=== PATIENT | male | born 1965 | race Hispanic/Latino ===

== ENCOUNTER → 2020-04-02 | Outpatient (CLI) | payer BC | END | disposition home or self-care (01) | LOC: RAH 07:53 | PROVIDERS: ATTEND Family Medicine | DX: G31.9 Degenerative disease of nervous system, unspecified (principal); I25.89 Other forms of chronic ischemic heart disease | CPT/HCPCS: 70551 ==

== ENCOUNTER 2021-05-06 16:09 | Emergency (ER) | payer BC ==
[~2021-05-06] VITALS: Ht 180.3 cm; Wt 100.7 kg
[2021-05-06] MEDS ORDERED: KETOROLAC 30MG VIAL (30MG/ML) IV STA (16:43)
[2021-05-06 16:54] LABS: BASOPHILS % (AUTO) 0.4 % (0.0-5.0); HEMATOCRIT 38.2 % (42-54); LYMPHOCYTES % (AUTO) 26.4 % (21.0-51.0); MEAN CORPUSCULAR HEMOGLOBIN 31.3 pg (27.0-33.0); MEAN CORPUSCULAR HGB CONC 33.2 g/dL (32.0-36.0); MEAN CORPUSCULAR VOLUME 94.1 fL (79-99); MONOCYTES % (AUTO) 11.6 % (3.0-13.0); NEUTROPHILS % (AUTO) 60.2 % (40.0-77.0); PLATELET COUNT (AUTO) 202 K/uL (130-400); RED BLOOD CELL COUNT(AUTO) 4.06 MIL/uL (4.50-6.20); RED CELL DISTRIBUTION WIDTH 13.2 % (11.0-15.5); WHITE BLOOD COUNT (AUTO) 6.8 K/uL (4.8-10.8)
[2021-05-06] MEDS ORDERED: ONDANSETRON 4MG INJ IVP ONE (17:00)
[2021-05-06] MEDS ORDERED: FAMOTIDINE 20MG TAB PO ONE (17:00)
[2021-05-06] MEDS ORDERED: LACTATED RINGERS 1000ML 1,000 ML IV ONE (17:00)
[2021-05-06 17:06] LABS: CREATININE 2.5 mg/dL (0.5-1.5); POTASSIUM 3.7 mmol/L (3.5-5.1)
[2021-05-06 17:11] LABS: BILIRUBIN,TOTAL 0.7 mg/dL (0.2-1.0); TOTAL PROTEIN, SERUM 6.8 g/dL (6.0-8.3)
[2021-05-06 17:14] LABS: AMYLASE 52 U/L (25-115)
[2021-05-06 17:15] LABS: LIPASE 131 U/L (114-286)
[2021-05-06] MEDS ORDERED: KETOROLAC 30MG VIAL (30MG/ML) ONE (17:54)
[2021-05-06 18:21] LABS: APPEARANCE,URINE Clear (CLEAR); BILIRUBIN,URINE Negative (NEGATIVE); COLOR,URINE Yellow (YELLOW); GLUCOSE, URINE (UA) Negative (NEGATIVE); KETONES,URINE Trace mg/dL (NEGATIVE); LEUKOCYTE ESTERASE ,URINE Trace (NEGATIVE); NITRATE,URINE Negative (NEGATIVE); OCCULT BLOOD,URINE Negative (NEGATIVE); PH,URINE 5.5 (5.0-8.0); PROTEIN,URINE Trace mg/dL (NEGATIVE)
[2021-05-06] MEDS ORDERED: MORPHINE 2 MG SYG IVP STA (18:23)
[2021-05-06] MEDS ORDERED: LEVOFLOXACIN 500 MG TABLET PO STA (18:23)
[2021-05-06 18:29] LABS: BACTERIA,URINE Few /HPF (None Seen); RBC,URINE 0-1 /HPF (0-1)
[2021-05-06 18:30] LABS: SQUAMOUS EPITHELIAL CELL,UR Few /HPF (0-2); TRANSITIONAL EPI CELLS,URINE Rare /HPF (None Seen)
[2021-05-06] MEDS ORDERED: LEVO750T46 PO (19:50)
[2021-05-06 20:00] VITALS: BP 106/63
== END 2021-05-06 20:04 | disposition home or self-care (01) ==
LOC: EDH 16:09
DX: I95.9 Hypotension, unspecified (principal); R19.7 Diarrhea, unspecified; G89.29 Other chronic pain; I12.9 Hypertensive chronic kidney disease with stage 1 through stage 4 chronic kidney disease, or unspecified chronic kidney disease; N18.9 Chronic kidney disease, unspecified; Z20.822 Contact with and (suspected) exposure to COVID-19; F90.9 Attention-deficit hyperactivity disorder, unspecified type; Z79.1 Long term (current) use of non-steroidal anti-inflammatories (NSAID); Z79.899 Other long term (current) drug therapy; Z86.73 Personal history of transient ischemic attack (TIA), and cerebral infarction without residual deficits; Z88.0 Allergy status to penicillin
CPT/HCPCS: 36415; 80053; 81001; 82150; 82550; 83605; 83690; 83735; 84484; 85025; 87040 ×2; 87088; 87635; 93005 ×2; 96361; 96374; 96375; 99284; C9803; J2405; J7120; J1885

== ENCOUNTER 2021-05-17 17:48 | Inpatient (IN) | payer BC ==
[~2021-05-17] VITALS: Ht 180.3 cm; Wt 100.8 kg
[~2021-05-17 17:48] MED LIST: LEVO750T46 PO
[2021-05-17] MEDS ORDERED: 0.9%NACL 1000ML 1,000 ML IV ONE (18:30)
[2021-05-17 18:56] LABS: BASOPHILS % (AUTO) 0.3 % (0.0-5.0); EOSINOPHILS % (AUTO) 1.1 % (0.0-8.0); HEMATOCRIT 43.4 % (42-54); LYMPHOCYTES % (AUTO) 38.6 % (21.0-51.0); MEAN CORPUSCULAR HEMOGLOBIN 30.9 pg (27.0-33.0); MEAN CORPUSCULAR HGB CONC 33.9 g/dL (32.0-36.0); MEAN CORPUSCULAR VOLUME 91.2 fL (79-99); MONOCYTES % (AUTO) 13.4 % (3.0-13.0); NEUTROPHILS % (AUTO) 46.3 % (40.0-77.0); PLATELET COUNT (AUTO) 197 K/uL (130-400); RED BLOOD CELL COUNT(AUTO) 4.76 MIL/uL (4.50-6.20); RED CELL DISTRIBUTION WIDTH 12.9 % (11.0-15.5); WHITE BLOOD COUNT (AUTO) 6.1 K/uL (4.8-10.8)
[2021-05-17 19:13] LABS: CREATININE 2.6 mg/dL (0.5-1.5); POTASSIUM 3.5 mmol/L (3.5-5.1)
[2021-05-17 19:21] LABS: ALBUMIN 4.5 g/dL (3.5-5.0); BILIRUBIN,TOTAL 0.9 mg/dL (0.2-1.0); MAGNESIUM 1.6 mg/dL (1.80-2.40)
[2021-05-17 19:23] LABS: INR 1.1 (0.85-1.15); PROTHROMBIN TIME 11.9 SEC (9.6-11.6)
[2021-05-17 19:24] LABS: PARTIAL THROMBOPLASTIN TIME 28.7 SEC (26.3-35.5)
[2021-05-17] MEDS ORDERED: MAG/ALUM/SIMETH 30 ML UDCUP PO PRN (20:30)
[2021-05-17] MEDS ORDERED: ACETAMINOPHEN 325 MG TAB PO PRN (20:30)
[2021-05-17] MEDS ORDERED: GUAIFENESIN-DM 200/20 MG 10 ML PO PRN (20:30)
[2021-05-17] MEDS ORDERED: ZOLPIDEM TARTRATE 5 MG TAB PO PRN (20:30)
[2021-05-17] MEDS ORDERED: NITROGLYCERIN 0.4 MG SL TAB SL PRN (20:30)
[2021-05-17] MEDS: 0.9%NACL 1000ML 1,000 ML IV SCH (21:21)
[2021-05-17] MEDS: ACETAMINOPHEN 325 MG TAB PO PRN (23:28)
[2021-05-18] VITALS (11 sets, daily range): BP systolic 90–118; BP diastolic 56–73
[2021-05-18] MEDS: ONDANSETRON 4MG INJ IV PRN (03:06)
[2021-05-18 03:56] LABS: APPEARANCE,URINE Clear (CLEAR); BILIRUBIN,URINE Negative (NEGATIVE); COLOR,URINE Yellow (YELLOW); GLUCOSE, URINE (UA) Negative (NEGATIVE); KETONES,URINE 15 mg/dL (NEGATIVE); LEUKOCYTE ESTERASE ,URINE Negative (NEGATIVE); NITRATE,URINE Negative (NEGATIVE); OCCULT BLOOD,URINE Negative (NEGATIVE); PROTEIN,URINE Negative (NEGATIVE); UROBILINOGEN,URINE 0.2 mg/dL (0.2-1.0)
[2021-05-18 04:03] LABS: AMPHET/METH SCREEN,URINE NEGATIVE (NEGATIVE); BARBITURATE SCREEN, URINE NEGATIVE (NEGATIVE); BENZODIAZEPINES SCREEN,URINE NEGATIVE (NEGATIVE); CANNABINOID SCREEN,URINE NEGATIVE (NEGATIVE); COCAINE SCREEN,URINE NEGATIVE (NEGATIVE); OPIATE SCREEN,URINE NEGATIVE (NEGATIVE); PHENCYCLIDINE SCREEN,URINE NEGATIVE (NEGATIVE)
[2021-05-18] MEDS ORDERED: PROMETHAZINE HCL 25 MG/ML 1ML AMPULE IM PRN (04:30)
[2021-05-18 05:16] LABS: BASOPHILS % (AUTO) 0.3 % (0.0-5.0); EOSINOPHILS % (AUTO) 0.9 % (0.0-8.0); HEMATOCRIT 39.4 % (42-54); LYMPHOCYTES % (AUTO) 39.7 % (21.0-51.0); MEAN CORPUSCULAR HEMOGLOBIN 31.4 pg (27.0-33.0); MEAN CORPUSCULAR HGB CONC 33.5 g/dL (32.0-36.0); MEAN CORPUSCULAR VOLUME 93.6 fL (79-99); MONOCYTES % (AUTO) 14.3 % (3.0-13.0); NEUTROPHILS % (AUTO) 44.6 % (40.0-77.0); PLATELET COUNT (AUTO) 149 K/uL (130-400); RED BLOOD CELL COUNT(AUTO) 4.21 MIL/uL (4.50-6.20); RED CELL DISTRIBUTION WIDTH 13.1 % (11.0-15.5); WHITE BLOOD COUNT (AUTO) 6.5 K/uL (4.8-10.8)
[2021-05-18] MEDS ORDERED: LOPERAMIDE HCL 2 MG CAP PO PRN (05:30)
[2021-05-18 05:34] LABS: ALBUMIN 3.8 g/dL (3.5-5.0); BILIRUBIN,TOTAL 0.7 mg/dL (0.2-1.0); MAGNESIUM 1.5 mg/dL (1.80-2.40); PHOSPHORUS 3.7 mg/dL (2.5-4.9); POTASSIUM 3.4 mmol/L (3.5-5.1); TOTAL PROTEIN, SERUM 6.6 g/dL (6.0-8.3)
[2021-05-18] MEDS ORDERED: LEVOFLOXACIN 500 MG/D5W 100 ML 100 ML IV SCH (07:00)
[2021-05-18] MEDS ORDERED: LIDOCAINE HCL-MPF 1% 2ML VIAL IV PRN (07:00)
[2021-05-18] MEDS ORDERED: POTASSIUM CHLORIDE 20MEQ/100ML 100 ML IV PRN ×2 (07:00→14:30)
[2021-05-18] MEDS: ENOXAPARIN SODIUM 30 MG/0.3 ML SQ SCH (09:05)
[2021-05-18] MEDS: FAMOTIDINE 20MG VIAL IV SCH (09:05)
[2021-05-18] MEDS: GABAPENTIN 300 MG CAPSULE PO SCH ×3 (09:06→20:43)
[2021-05-18] MEDS: 0.9%NACL 1000ML 1,000 ML IV SCH (10:46)
[2021-05-18] MEDS: ACETAMINOPHEN 325 MG TAB PO PRN (11:05)
[2021-05-18] MEDS ORDERED: MAGNESIUM 2GM PREMIX 50ML 50 ML IV PRN (14:00)
[2021-05-18] MEDS ORDERED: METRONIDAZOLE 500MG/100ML BAG 100 ML IVPB SCH (14:00)
[2021-05-18] MEDS: DEXTROSE 5%-LACTATED RINGERS 1,000 ML IV SCH ×2 (14:18→20:45)
[2021-05-18] MEDS: KCL 20 MEQ ERTAB PO PRN ×2 (14:18→16:51)
[2021-05-18] MEDS: MAGNESIUM 2GM PREMIX 50ML 50 ML IV PRN (14:18)
[2021-05-18] MEDS ORDERED: LIDOCAINE HCL-MPF 1% 2ML VIAL IJ PRN (14:30)
[2021-05-18] MEDS ORDERED: POTASSIUM CHLORIDE 10% ELIXIR 20 MEQ/15 ML UDCUP PO PRN (14:30)
[2021-05-18] MEDS ORDERED: ALLO300T2 PO (15:14)
[2021-05-18] MEDS ORDERED: PROM5SYR PO (15:14)
[2021-05-18] MEDS ORDERED: ONDA4TAB10 PO (15:14)
[2021-05-18] MEDS ORDERED: COLC0.6T73 PO (15:31)
[2021-05-18] MEDS ORDERED: CYAN10007 IJ (15:31)
[2021-05-18] MEDS ORDERED: METO1TAB40 PO (15:31)
[2021-05-18] MEDS ORDERED: HYDR-4030 PO (15:31)
[2021-05-18] MEDS ORDERED: AMLO-257 PO (15:31)
[2021-05-18] MEDS ORDERED: PANT40TA55 PO (15:31)
[2021-05-18] MEDS ORDERED: INDO50CA98 PO (15:31)
[2021-05-18] MEDS ORDERED: CLON0.1T PO (15:31)
[2021-05-18] MEDS ORDERED: MECL-160 PO (15:31)
[2021-05-18] MEDS ORDERED: ATOR10TA69 PO (15:31)
[2021-05-18] MEDS ORDERED: EMTR1TAB12 PO (15:31)
[2021-05-18] MEDS ORDERED: ASPI-1012 PO (15:31)
[2021-05-18] MEDS ORDERED: ALPR0.5T8 PO (15:31)
[2021-05-18] MEDS ORDERED: DULO30CA52 PO (17:58)
[2021-05-18] MEDS ORDERED: ALPR1TAB7 PO (17:58)
[2021-05-18] MEDS ORDERED: DONE5TAB33 PO (17:58)
[2021-05-18] MEDS ORDERED: TRAZ-187 PO (17:58)
[2021-05-18] MEDS: METRONIDAZOLE 500 MG TABLET PO SCH (18:34)
[2021-05-18] MEDS ORDERED: CLONAZEPAM 1MG TAB PO ONE ×2 (19:00→22:00)
[2021-05-18] MEDS ORDERED: CLONAZEPAM 1MG TAB ONE (20:10)
[2021-05-18] MEDS: COLCHICINE 0.6 MG TABLET PO SCH (20:44)
[2021-05-18] MEDS: DONEPEZIL HCL 5 MG TAB PO SCH (20:44)
[2021-05-18] MEDS ORDERED: ALPRAZOLAM 1 MG TAB PO SCH (21:00)
[2021-05-18] MEDS ORDERED: INDOMETHACIN 25 MG CAP PO SCH (21:00)
[2021-05-18] MEDS ORDERED: ALPRAZOLAM 0.5 MG TABLET PO SCH (21:00)
[2021-05-18] MEDS ORDERED: TRAZODONE HCL 100 MG TABLET PO SCH (21:00)
[2021-05-18] MEDS ORDERED: MECLIZINE HCL 25 MG TABLET PO SCH (21:00)
[2021-05-18] MEDS ORDERED: LORAZEPAM 2 MG/ML 1 ML VIAL IM ONE (23:00)
[2021-05-19 00:03] VITALS: BP_SYST 105; BP_SYST 115; BP_SYST 98; BP_DIAS 50; BP_DIAS 65; BP_DIAS 76
[2021-05-19] MEDS: METRONIDAZOLE 500 MG TABLET PO SCH ×3 (01:16→18:11)
[2021-05-19 04:00] VITALS: BP_SYST 106; BP_SYST 88; BP_SYST 98; BP_DIAS 55; BP_DIAS 61; BP_DIAS 62
[2021-05-19 04:23] LABS: BASOPHILS % (AUTO) 0.4 % (0.0-5.0); EOSINOPHILS % (AUTO) 1.5 % (0.0-8.0); HEMATOCRIT 35.2 % (42-54); LYMPHOCYTES % (AUTO) 41.8 % (21.0-51.0); MEAN CORPUSCULAR HEMOGLOBIN 30.9 pg (27.0-33.0); MEAN CORPUSCULAR HGB CONC 33.5 g/dL (32.0-36.0); MEAN CORPUSCULAR VOLUME 92.1 fL (79-99); MONOCYTES % (AUTO) 14.3 % (3.0-13.0); NEUTROPHILS % (AUTO) 41.8 % (40.0-77.0); PLATELET COUNT (AUTO) 144 K/uL (130-400); RED BLOOD CELL COUNT(AUTO) 3.82 MIL/uL (4.50-6.20); WHITE BLOOD COUNT (AUTO) 4.7 K/uL (4.8-10.8)
[2021-05-19 04:38] LABS: CREATININE 1.4 mg/dL (0.5-1.5); POTASSIUM 3.8 mmol/L (3.5-5.1)
[2021-05-19] MEDS: DEXTROSE 5%-LACTATED RINGERS 1,000 ML IV SCH ×3 (04:56→21:17)
[2021-05-19 08:00] VITALS: BP_SYST 113; BP_SYST 115; BP_SYST 139; BP_DIAS 56; BP_DIAS 70; BP_DIAS 86
[2021-05-19] MEDS: TENOFOV ALAFENAM PO SCH (09:00)
[2021-05-19] MEDS: EMTRICITABINE PO SCH (09:00)
[2021-05-19] MEDS: ASPIRIN 81MG CHEW TAB PO SCH (11:17)
[2021-05-19] MEDS: ALLOPURINOL 300 MG TABLET PO SCH (11:18)
[2021-05-19] MEDS: ATORVASTATIN 10 MG TABLET PO SCH (11:18)
[2021-05-19] MEDS: DULOXETINE HCL 30 MG CAP PO SCH (11:18)
[2021-05-19] MEDS: CLONAZEPAM 1MG TAB PO SCH ×3 (11:19→21:16)
[2021-05-19] MEDS: GABAPENTIN 300 MG CAPSULE PO SCH ×3 (11:19→21:17)
[2021-05-19] MEDS: FAMOTIDINE 20MG VIAL IV SCH (11:19)
[2021-05-19] MEDS: ENOXAPARIN SODIUM 30 MG/0.3 ML SQ SCH (11:23)
[2021-05-19] MEDS: COLCHICINE 0.6 MG TABLET PO SCH ×2 (11:36→21:16)
[2021-05-19 12:00] VITALS: BP_SYST 101; BP_SYST 116; BP_DIAS 56; BP_DIAS 74
[2021-05-19 16:00] VITALS: BP 101/56
[2021-05-19] MEDS ORDERED: LORAZEPAM 2 MG/ML 1 ML VIAL IVP ONE (18:00)
[2021-05-19] MEDS: ONDANSETRON 4MG INJ IV PRN (18:39)
[2021-05-19 20:28] VITALS: BP 128/73
[2021-05-19] MEDS: QUETIAPINE FUMARATE 25 MG TAB PO SCH (21:16)
[2021-05-19] MEDS: DONEPEZIL HCL 5 MG TAB PO SCH (21:16)
[2021-05-19] MEDS: HYDROXYZINE PAMOATE 25 MG PO SCH (21:33)
[2021-05-20] VITALS (8 sets, daily range): BP systolic 97–123; BP diastolic 55–74
[2021-05-20] MEDS: METRONIDAZOLE 500 MG TABLET PO SCH ×3 (01:02→18:39)
[2021-05-20] MEDS: DEXTROSE 5%-LACTATED RINGERS 1,000 ML IV SCH ×3 (04:30→21:19)
[2021-05-20 04:40] LABS: HEMATOCRIT 34.6 % (42-54); MEAN CORPUSCULAR HEMOGLOBIN 30.7 pg (27.0-33.0); MEAN CORPUSCULAR HGB CONC 33.2 g/dL (32.0-36.0); MEAN CORPUSCULAR VOLUME 92.5 fL (79-99); PLATELET COUNT (AUTO) 117 K/uL (130-400); RED BLOOD CELL COUNT(AUTO) 3.74 MIL/uL (4.50-6.20); WHITE BLOOD COUNT (AUTO) 4.5 K/uL (4.8-10.8)
[2021-05-20 05:04] LABS: LYMPHOCYTES % (MANUAL) 48 % (22-44); MAN.DIFF COMMENT-IMPRESSION MANUAL DIFFERENTIAL; MONOCYTES % (MANUAL) 10 % (2-9); SEGMENTED NEUTROPHILS % 42 % (40-70)
[2021-05-20 05:10] LABS: ALBUMIN 3.3 g/dL (3.5-5.0); BILIRUBIN,TOTAL 0.4 mg/dL (0.2-1.0); CREATININE 1.2 mg/dL (0.5-1.5); MAGNESIUM 1.9 mg/dL (1.80-2.40); POTASSIUM 3.5 mmol/L (3.5-5.1); TOTAL PROTEIN, SERUM 5.8 g/dL (6.0-8.3)
[2021-05-20] MEDS: TENOFOV ALAFENAM PO SCH (09:00)
[2021-05-20] MEDS: HYDROXYZINE PAMOATE 25 MG PO SCH ×4 (09:00→21:07)
[2021-05-20] MEDS: EMTRICITABINE PO SCH (09:00)
[2021-05-20] MEDS: GABAPENTIN 300 MG CAPSULE PO SCH ×3 (09:00→21:00)
[2021-05-20] MEDS: DULOXETINE HCL 30 MG CAP PO SCH (10:23)
[2021-05-20] MEDS: ASPIRIN 81MG CHEW TAB PO SCH (10:23)
[2021-05-20] MEDS: FAMOTIDINE 20MG VIAL IV SCH (10:25)
[2021-05-20] MEDS: ATORVASTATIN 10 MG TABLET PO SCH (10:25)
[2021-05-20] MEDS: ENOXAPARIN SODIUM 30 MG/0.3 ML SQ SCH (10:27)
[2021-05-20] MEDS: ALLOPURINOL 300 MG TABLET PO SCH (10:27)
[2021-05-20] MEDS: CLONAZEPAM 1MG TAB PO SCH ×3 (10:31→21:06)
[2021-05-20] MEDS: METOCLOPRAMIDE 5 MG TABLET PO SCH ×3 (10:40→21:06)
[2021-05-20] MEDS ORDERED: IOHEXOL-350 75 ML VIAL IV ONE (11:40)
[2021-05-20] MEDS: CLONIDINE HCL 0.1 MG TABLET PO SCH (14:39)
[2021-05-20] MEDS: METOPROLOL TARTRATE 25 MG TAB PO SCH (21:00)
[2021-05-20] MEDS: CHOLESTYRAMINE PACKET 4 GM PACKET PO SCH (21:06)
[2021-05-20] MEDS: QUETIAPINE FUMARATE 25 MG TAB PO SCH (21:06)
[2021-05-21] VITALS: BP 104/67
[2021-05-21] MEDS: METRONIDAZOLE 500 MG TABLET PO SCH ×2 (01:58→09:58)
[2021-05-21 03:48] LABS: HEMATOCRIT 32.7 % (42-54); MEAN CORPUSCULAR HEMOGLOBIN 31.6 pg (27.0-33.0); MEAN CORPUSCULAR HGB CONC 33.3 g/dL (32.0-36.0); MEAN CORPUSCULAR VOLUME 94.8 fL (79-99); RED BLOOD CELL COUNT(AUTO) 3.45 MIL/uL (4.50-6.20); RED CELL DISTRIBUTION WIDTH 13.2 % (11.0-15.5); WHITE BLOOD COUNT (AUTO) 4.6 K/uL (4.8-10.8)
[2021-05-21 04:00] VITALS: BP 102/68
[2021-05-21 04:00] LABS: CREATININE 1.1 mg/dL (0.5-1.5); POTASSIUM 3.3 mmol/L (3.5-5.1)
[2021-05-21] MEDS: DEXTROSE 5%-LACTATED RINGERS 1,000 ML IV SCH (04:17)
[2021-05-21] MEDS: KCL 20 MEQ ERTAB PO PRN ×2 (04:42→09:57)
[2021-05-21] MEDS: MAGNESIUM 2GM PREMIX 50ML 50 ML IV PRN (04:45)
[2021-05-21] MEDS: METOCLOPRAMIDE 5 MG TABLET PO SCH ×2 (07:56→11:45)
[2021-05-21 08:00] VITALS: BP 105/67
[2021-05-21] MEDS: EMTRICITABINE PO SCH (09:00)
[2021-05-21] MEDS: TENOFOV ALAFENAM PO SCH (09:00)
[2021-05-21] MEDS: HYDROXYZINE PAMOATE 25 MG PO SCH ×2 (09:31→14:58)
[2021-05-21] MEDS: DULOXETINE HCL 30 MG CAP PO SCH (09:56)
[2021-05-21] MEDS: FAMOTIDINE 20MG VIAL IV SCH (09:56)
[2021-05-21] MEDS: ASPIRIN 81MG CHEW TAB PO SCH (09:56)
[2021-05-21] MEDS: CLONAZEPAM 1MG TAB PO SCH ×2 (09:57→14:56)
[2021-05-21] MEDS: METOPROLOL TARTRATE 25 MG TAB PO SCH (09:57)
[2021-05-21] MEDS: ATORVASTATIN 10 MG TABLET PO SCH (09:58)
[2021-05-21] MEDS: GABAPENTIN 300 MG CAPSULE PO SCH ×2 (09:58→14:57)
[2021-05-21] MEDS: CHOLESTYRAMINE PACKET 4 GM PACKET PO SCH (09:59)
[2021-05-21] MEDS: ALLOPURINOL 300 MG TABLET PO SCH (09:59)
[2021-05-21] MEDS: CLONIDINE HCL 0.1 MG TABLET PO SCH (09:59)
[2021-05-21] MEDS: ENOXAPARIN SODIUM 30 MG/0.3 ML SQ SCH (10:00)
[2021-05-21 12:00] VITALS: BP 91/41
[2021-05-21] MEDS ORDERED: LEVO500T90 PO (12:15)
[2021-05-21] MEDS ORDERED: GABA300C PO (12:15)
[2021-05-21] MEDS ORDERED: CHOL4PAC21 PO (12:15)
[2021-05-21] MEDS ORDERED: METR-172 PO (12:15)
[2021-05-21] MEDS ORDERED: METO25 PO (12:15)
== END 2021-05-21 17:00 | disposition home or self-care (01) | DRG 392 ==
LOC: EDH 17:48 → OBSVTOIN 20:07 → EDHIP 20:07 → 3BH 05-18 03:19
PROVIDERS: ADMIT Internal Medicine Pulmonary Disease; ATTEND Internal Medicine Pulmonary Disease
DX: K52.9 Noninfective gastroenteritis and colitis, unspecified (principal); N17.9 Acute kidney failure, unspecified; B15.9 Hepatitis A without hepatic coma; I12.9 Hypertensive chronic kidney disease with stage 1 through stage 4 chronic kidney disease, or unspecified chronic kidney disease; E86.0 Dehydration; K21.9 Gastro-esophageal reflux disease without esophagitis; K57.30 Diverticulosis of large intestine without perforation or abscess without bleeding; N18.9 Chronic kidney disease, unspecified; N20.0 Calculus of kidney; M10.9 Gout, unspecified; E78.5 Hyperlipidemia, unspecified; Z20.822 Contact with and (suspected) exposure to COVID-19; E66.9 Obesity, unspecified; E78.00 Pure hypercholesterolemia, unspecified; F32.A Depression, unspecified; F41.1 Generalized anxiety disorder; F90.9 Attention-deficit hyperactivity disorder, unspecified type; G89.29 Other chronic pain; K29.70 Gastritis, unspecified, without bleeding; K59.00 Constipation, unspecified; R29.6 Repeated falls; R53.81 Other malaise; E87.8 Other disorders of electrolyte and fluid balance, not elsewhere classified; R62.7 Adult failure to thrive; Z68.31 Body mass index [BMI] 31.0-31.9, adult; Z79.82 Long term (current) use of aspirin; Z79.899 Other long term (current) drug therapy; Z88.0 Allergy status to penicillin; Z87.11 Personal history of peptic ulcer disease; Z86.73 Personal history of transient ischemic attack (TIA), and cerebral infarction without residual deficits
CPT/HCPCS: 36415; 70450; 70496; 70544; 70551; 71045; 72125; 72131; 74176; 80048; 80053; 80305; 81003; 82550; 83630; 83735; 84100; 84145; 84300; 84484; 85025; 85027; 85610; 85730; 86701; 87040; 87088; 87324; 87338; 87390; 87507; 87635; 93005; G0378; J1650; J2060; J2405; J3475; J3490; Q9967

== ENCOUNTER 2023-06-07 14:34 | Emergency (ER) | payer BC ==
[~2023-06-07] VITALS: Ht 180.3 cm; Wt 86.2 kg
[~2023-06-07 14:34] MED LIST changes: +ALLO300T2 PO; +ASPI-1012 PO; +ATOR10TA69 PO; +CHOL4POW4 PO; +COLC0.6T73 PO; +CYAN10007 IJ; +DONE5TAB33 PO; +DULO30CA52 PO; +EMTR1TAB12 PO; +FAMO-136 PO; +GABA300C PO; +HYDR-4030 PO; +INDO50CA98 PO; +LEVO-70 PO; -LEVO750T46 PO; +MECL-302 PO; +METO25 PO; +METR-172 PO; +ONDA-104 PO; +ONDA4TAB10 PO; +PANT40TA55 PO; +TRAZ-187 PO
[2023-06-07 16:43] LABS: BASOPHILS # (AUTO) 0.01 K/uL (0.00-0.20); BASOPHILS % (AUTO) 0.1 % (0.0-5.0); EOSINOPHILS # (AUTO) 0.03 K/uL (0.00-0.70); EOSINOPHILS % (AUTO) 0.2 % (0.0-8.0); HEMATOCRIT 39.6 % (42-54); IMMATURE GRANULOCYTE ABSOLUTE 0.07 K/uL (0-1); LYMPHOCYTES # (AUTO) 1.2 K/uL (1.0-4.8); LYMPHOCYTES % (AUTO) 8.8 % (21.0-51.0); MEAN CORPUSCULAR HEMOGLOBIN 31.2 pg (27.0-33.0); MEAN CORPUSCULAR HGB CONC 32.1 g/dL (32.0-36.0); MEAN CORPUSCULAR VOLUME 97.3 fL (79-99); MONOCYTES # (AUTO) 0.5 K/uL (0.1-1.0); NEUTROPHILS # (AUTO) 11.5 K/uL (1.8-7.7); NEUTROPHILS % (AUTO) 86.4 % (40.0-77.0); PLATELET COUNT (AUTO) 291 K/uL (130-400); RED BLOOD CELL COUNT(AUTO) 4.07 MIL/uL (4.50-6.20); RED CELL DISTRIBUTION WIDTH 15.1 % (11.0-15.5); WHITE BLOOD COUNT (AUTO) 13.4 K/uL (4.8-10.8)
[2023-06-07 17:00] LABS: ALBUMIN 3.6 g/dL (3.5-5.0); BILIRUBIN,TOTAL 0.9 mg/dL (0.2-1.0); CREATININE 1.1 mg/dL (0.5-1.5); TOTAL PROTEIN, SERUM 7.2 g/dL (6.0-8.3)
[2023-06-07 17:03] LABS: POTASSIUM 2.8 mmol/L (3.5-5.1)
[2023-06-07 18:22] LABS: ADD UA MICROSCOPIC YES; APPEARANCE,URINE CLEAR (CLEAR); BILIRUBIN,URINE NEGATIVE (NEGATIVE); COLOR,URINE LIGHT-YELLOW (YELLOW); GLUCOSE, URINE (UA) NEGATIVE (NEGATIVE); KETONES,URINE NEGATIVE (NEGATIVE); LEUKOCYTE ESTERASE ,URINE NEGATIVE Leu/uL (NEGATIVE); NITRATE,URINE NEGATIVE (NEGATIVE); OCCULT BLOOD,URINE NEGATIVE (NEGATIVE); PROTEIN,URINE 10 mg/dL (NEGATIVE); UROBILINOGEN,URINE 0.2 mg/dL (0.2-1.0)
[2023-06-07 18:23] LABS: BACTERIA,URINE RARE /HPF (None Seen); MUCUS,URINE RARE LPF (None Seen)
[2023-06-07] MEDS ORDERED: ACETAMINOPHEN 500 MG TABLET PO ONE (18:30)
[2023-06-07] MEDS ORDERED: LEVOFLOXACIN 500 MG/D5W 100 ML 100 ML IV SCH (18:30)
[2023-06-07] MEDS ORDERED: 0.9%NACL 1000ML 2,259 ML IV ONE (18:30)
[2023-06-07 18:32] VITALS: TEMP 100.4
[2023-06-07 18:45] LABS: INR 0.94 (0.85-1.15)
[2023-06-07 18:46] LABS: PARTIAL THROMBOPLASTIN TIME 30.5 SEC (26.3-35.5)
[2023-06-07 18:53] LABS: SARS-CoV-2, RNA, NAAT NEGATIVE SARS CoV-2 (NEGATIVE)
[2023-06-07 18:56] LABS: INFLUENZA TYPE A Negative For Type A (NEGATIVE); INFLUENZA TYPE B Negative For Type B (NEGATIVE)
[2023-06-07] MEDS ORDERED: ONDANSETRON 4MG INJ IVP ONE (20:00)
[2023-06-07] MEDS ORDERED: POTASSIUM BICARB/CIT AC 25 MEQ TABLET.EFF PO ONE ×2 (20:00→21:30)
[2023-06-07 21:28] VITALS: BP 110/64; PULSE 88; RESP 20; O2SAT 98
[2023-06-07] MEDS ORDERED: POTASSIUM BICARB/CIT AC 25 MEQ TABLET.EFF PO STA (21:33)
[2023-06-07] MEDS ORDERED: CALC-265 PO (21:35)
== END 2023-06-07 21:57 | disposition home or self-care (01) ==
LOC: EDH 14:36
DX: R50.9 Fever, unspecified (principal); E87.6 Hypokalemia; E83.51 Hypocalcemia; R20.2 Paresthesia of skin; R79.89 Other specified abnormal findings of blood chemistry; I10 Essential (primary) hypertension; Z79.624 Long term (current) use of inhibitors of nucleotide synthesis; Z79.82 Long term (current) use of aspirin; Z79.899 Other long term (current) drug therapy; Z86.73 Personal history of transient ischemic attack (TIA), and cerebral infarction without residual deficits; Z88.0 Allergy status to penicillin; Z20.822 Contact with and (suspected) exposure to COVID-19
CPT/HCPCS: 99284; 96365; 71045; 87635; 96375; 84484; 80053; 85025; 85610; 85730; 87040 ×2; 87804 ×2; 83605 ×2; 81001; 36415; 93005; C9803; J1956; J7030; J2405